=== PATIENT | male | born 1990 | race Caucasian/White ===

== ENCOUNTER → 2017-12-18 | Outpatient (CLI) | payer OTHER | LOC: CIMAGING 07:25 | DX: R10.13 Epigastric pain (principal); R10.11 Right upper quadrant pain | CPT/HCPCS: 76705-PO ==

== ENCOUNTER → 2018-05-20 | Outpatient (CLI) | payer OTHER ==
[~2018-05-20] MED LIST: IOPAMIDOL (ISOVUE-300) 100 ML BTL ONE
== END ==
LOC: FIMAGING 12:01
DX: R93.8 Abnormal findings on diagnostic imaging of other specified body structures (principal); R59.9 Enlarged lymph nodes, unspecified; R10.13 Epigastric pain
CPT/HCPCS: Q9967

== ENCOUNTER → 2018-07-15 | Outpatient (CLI) | payer OTHER | LOC: FIMAGING 11:36 | DX: N50.812 Left testicular pain (principal); Z85.47 Personal history of malignant neoplasm of testis; I86.1 Scrotal varices; N43.3 Hydrocele, unspecified ==